=== PATIENT | male | born 1985 | race Caucasian/White ===

== ENCOUNTER → 2018-06-27 | Outpatient (CLI) | payer BC ==
--- NOTE | 2018-06-27 14:54 | KCIC ---
PQRS Compliance statement: One or more of the following individualized dose reduction techniques were utilized for this examination: 1. Automated exposure control. 2. Adjustment of the mA and/or kV according to patient size. 3. Use of iterative reconstruction technique. Indication:Chronic sinusitis. TECHNIQUE: CT of the maxillofacial bones without IV contrast multiplanar reformats. COMPARISON: None FINDINGS: No suspicious bony lesion. Hypoplastic bilateral frontal sinuses. The ethmoid air cells, sphenoid sinuses and right maxillary sinus are within normal limits. Small mucous retention cyst or polyp is seen in the left maxillary sinus. Hypoplastic bilateral mastoid air cells. The temporomandibular joints are within normal limits. The lenses, orbits, extraocular muscles and intraorbital fat are within normal limits. Visualized superior cervical spine within normal limits. The noncontrast appearance of the suprahyoid neck soft tissues within normal limits. IMPRESSION: 1. Hypoplastic bilateral frontal sinuses and mastoid air cells. 2. Small retention cyst or polyp in the left maxillary sinus. 3. Evidence of acute or chronic sinusitis. Electronically signed by: Elieser Estrada DO (06/27/2018 2:51 PM) [id number]
== END | disposition home or self-care (01) ==
LOC: KCIC CT 11:14
PROVIDERS: ATTEND Otolaryngology
DX: J32.1 Chronic frontal sinusitis (principal); J32.3 Chronic sphenoidal sinusitis
CPT/HCPCS: 70486